=== PATIENT | male | born 1985 | race Two or more races ===

== ENCOUNTER 2019-10-27 22:27 | Emergency (ER) | payer MEDICAID, OTHER ==
[~2019-10-27] VITALS: Ht 177.8 cm; Wt 74.8 kg
--- NOTE | 2019-10-27 22:45 | NUR ---
PT AAOX4. BIB EMS C/O MULTIPLE LACERATION TO R POSTERIOR THIGH S/O DOG BITE, R FLANK ABRASION, L KNEE PAIN. FENTANYL 100MG IVP GIVEN BY EMS. MD AT BEDSIDE FOR EVAL. VSS, NO ACUTE DISTRESS NOTED.
[2019-10-27] MEDS ORDERED: PIPERACILLIN /TAZOBACTAM 3.375 G in IV D5W 50 ML IV ONE (23:00)
[2019-10-27] MEDS ORDERED: MORPHINE SULFATE INJ 2 MG/ML DISP.SYRIN IV ONE (23:00)
[2019-10-27] MEDS ORDERED: LIDOCAINE 1%-EPI 1:100,000 20 ML VIAL TP ONE (23:00)
[2019-10-27] MEDS ORDERED: ONDANSETRON HCL/PF 4 MG/2 ML VIAL IV ONE (23:00)
[2019-10-27] MEDS ORDERED: MORPHINE SULFATE INJ 4 MG/ML DISP.SYRIN ONE (23:09)
[2019-10-27] MEDS ORDERED: LIDOCAINE 1%-EPI 1:100,000 20 ML VIAL ONE (23:09)
[2019-10-27] MEDS ORDERED: ONDANSETRON HCL/PF 4 MG/2 ML VIAL ONE (23:09)
[2019-10-27] MEDS ORDERED: PIPERACILLIN /TAZOBACTAM 3.375 G VIAL IV ONE (23:09)
--- NOTE | 2019-10-27 23:19 | NUR ---
AT BEDSIDE FOR WOUND CLEANING
--- NOTE | 2019-10-27 23:53 | NUR ---
PA AT BEDSIDE FOR SUTURES.
--- NOTE | 2019-10-28 00:46 | NUR ---
IV removed. Catheter intact and site benign. Pressure and 4x4 applied to site. No bleeding noted.
--- NOTE | 2019-10-28 01:07 | NUR ---
Patient discharged to home in stable condition. Written and verbal after care instructions given. Patient verbalizes understanding of instruction and RX. PT used crutches to ambulated. VSS.
[2019-10-28 01:09] VITALS: BP 126/82
== END 2019-10-28 01:09 | disposition home or self-care (01) ==
LOC: ER 22:32
DX: S71.111A Laceration without foreign body, right thigh, initial encounter (principal); S30.811A Abrasion of abdominal wall, initial encounter; M25.562 Pain in left knee; W54.0XXA Bitten by dog, initial encounter; Y93.89 Activity, other specified; Y92.89 Other specified places as the place of occurrence of the external cause; Y99.8 Other external cause status
CPT/HCPCS: 12005; 96365; 96375; 99284; A6403 ×2; J2270; J2405; J2543; J3490; J7060

== ENCOUNTER 2019-10-29 06:33 | Emergency (ER) | payer OTHER ==
[~2019-10-29] VITALS: Ht 177.8 cm; Wt 74.8 kg
[2019-10-29 06:38] VITALS: BP 120/69
--- NOTE | 2019-10-29 07:00 | NUR ---
EMT AT BEDSIDE FOR WOUND DRESSING
--- NOTE | 2019-10-29 07:04 | NUR ---
Patient discharged to home in stable condition. Written and verbal after care instructions given. Patient verbalizes understanding of instruction. Pt ambulatory with a steady gait
== END 2019-10-29 07:05 | disposition home or self-care (01) ==
LOC: ER 06:38
DX: S71.111D Laceration without foreign body, right thigh, subsequent encounter (principal); F10.10 Alcohol abuse, uncomplicated; Y90.9 Presence of alcohol in blood, level not specified; W54.0XXD Bitten by dog, subsequent encounter

== ENCOUNTER 2019-10-30 13:21 | Emergency (ER) | payer OTHER ==
[~2019-10-30] VITALS: Ht 177.8 cm; Wt 74.8 kg
--- NOTE | 2019-10-30 13:36 | NUR ---
CALLED IN ED WAITING ROOM. NO REPLY
--- NOTE | 2019-10-30 13:46 | NUR ---
Patient left without being seen by ER Physician
--- NOTE | 2019-10-30 15:28 | NUR ---
WOUND CARE COMPLETED WITH IRRIGATION AND DRESSING PLACED
[2019-10-30 15:46] VITALS: BP 134/87
--- NOTE | 2019-10-30 15:46 | NUR ---
Patient discharged to home in stable condition. Written and verbal after care instructions given. Patient verbalizes understanding of instruction.
== END 2019-10-30 15:47 | disposition home or self-care (01) ==
LOC: ER 13:23
DX: S71.111D Laceration without foreign body, right thigh, subsequent encounter (principal); S30.811D Abrasion of abdominal wall, subsequent encounter; W54.0XXD Bitten by dog, subsequent encounter
CPT/HCPCS: 99282; A6253 ×2; A6403

== ENCOUNTER 2019-10-31 14:52 | Emergency (ER) | payer OTHER ==
[~2019-10-31] VITALS: Ht 177.8 cm; Wt 74.8 kg
[2019-10-31 16:28] VITALS: BP 142/73
--- NOTE | 2019-10-31 16:28 | NUR ---
PT BIB SELF VISIT FOR WOUND CHECK AT THE R THIGH, SEEN FOR A DOG BITE LAST SATURDAY, PT IS AAOX4, NOT IN RESPIRATORY DISTRESS, V/S STABLE, KEPT RESTED AND COMFORTABLE, WILL CONITNUE TO MONITOR.
--- NOTE | 2019-10-31 16:45 | NUR ---
SIOBHAN LUONG AT BEDSIDE FOR EVAL.
--- NOTE | 2019-10-31 17:46 | NUR ---
Patient discharged to home in stable condition. Written and verbal after care instructions given. Patient verbalizes understanding of instruction.
== END 2019-10-31 17:46 | disposition home or self-care (01) ==
LOC: ER 14:57
DX: S71.111D Laceration without foreign body, right thigh, subsequent encounter (principal); W54.0XXD Bitten by dog, subsequent encounter
CPT/HCPCS: 99282; A6253

== ENCOUNTER 2019-11-01 10:40 | Emergency (ER) | payer OTHER ==
[~2019-11-01] VITALS: Ht 167.6 cm; Wt 68.0 kg
[2019-11-01 10:52] VITALS: BP 128/76
--- NOTE | 2019-11-01 11:26 | NUR ---
Patient awake alert non distress noted Rt thigh dog bite last week ,noted slight redness no odor and non drining cleanse and cover
--- NOTE | 2019-11-01 11:36 | NUR ---
Patient discharged to home in stable condition. Written and verbal after care instructions given. Patient verbalizes understanding of instruction.
== END 2019-11-01 11:37 | disposition home or self-care (01) ==
LOC: ER 10:46
DX: S71.111D Laceration without foreign body, right thigh, subsequent encounter (principal); W54.0XXD Bitten by dog, subsequent encounter
CPT/HCPCS: 99281; L3763

== ENCOUNTER 2019-11-02 11:49 | Emergency (ER) | payer OTHER ==
[~2019-11-02] VITALS: Ht 177.8 cm; Wt 74.8 kg
[2019-11-02 11:55] VITALS: BP 127/80
== END 2019-11-02 12:41 | disposition home or self-care (01) ==
LOC: ER 12:00
DX: S31.103D Unspecified open wound of abdominal wall, right lower quadrant without penetration into peritoneal cavity, subsequent encounter (principal); S71.101D Unspecified open wound, right thigh, subsequent encounter; F10.10 Alcohol abuse, uncomplicated; Y90.9 Presence of alcohol in blood, level not specified; W54.0XXD Bitten by dog, subsequent encounter

== ENCOUNTER 2019-11-05 10:31 | Emergency (ER) | payer OTHER ==
[~2019-11-05] VITALS: Ht 177.8 cm; Wt 74.8 kg
[2019-11-05 10:40] VITALS: BP 136/87
--- NOTE | 2019-11-05 11:12 | NUR ---
WOUND CARE PROVIDED. D/C HOME IN STABLE CONDITION.
== END 2019-11-05 11:13 | disposition home or self-care (01) ==
LOC: ER 10:38
DX: S71.111A Laceration without foreign body, right thigh, initial encounter (principal); M54.5 Low back pain; F10.10 Alcohol abuse, uncomplicated; Y90.9 Presence of alcohol in blood, level not specified; W54.0XXA Bitten by dog, initial encounter; Y93.89 Activity, other specified; Y92.89 Other specified places as the place of occurrence of the external cause; Y99.8 Other external cause status

== ENCOUNTER 2019-11-09 09:56 | Emergency (ER) | payer OTHER ==
[~2019-11-09] VITALS: Ht 177.8 cm; Wt 74.8 kg
--- NOTE | 2019-11-09 10:16 | NUR ---
patient arrived at unit ambulatory. a/o x 4. with report of right thigh wound check s/p dog bite 1 week ago. patient verbalized he received tetanus shot on August. resting on bed, no acute distress. awaiting
--- NOTE | 2019-11-09 10:48 | NUR ---
Wound care PA, Iggy Tinsley at bedside for wound consult
--- NOTE | 2019-11-09 11:28 | NUR ---
Patient discharged to home in stable condition. Written and verbal after care instructions given. Written prescription provided to patient. Patient verbalizes understanding of instruction.
[2019-11-09 11:29] VITALS: BP 120/71
== END 2019-11-09 11:29 | disposition home or self-care (01) ==
LOC: ER 09:59
DX: S71.111D Laceration without foreign body, right thigh, subsequent encounter (principal); W54.0XXD Bitten by dog, subsequent encounter
CPT/HCPCS: 99282; A6253; A6407

== ENCOUNTER 2019-11-13 10:18 | Emergency (ER) | payer OTHER ==
[~2019-11-13] VITALS: Ht 177.8 cm; Wt 74.8 kg
[2019-11-13 10:18] VITALS: BP 116/77
--- NOTE | 2019-11-13 10:49 | NUR ---
SUTURE REMOVED PER MD ORDERED. NO BLEEDING. NO DRAINAGE. NOTED RED GRANULATED TISSUE. NO NOTED SLOUGH.
--- NOTE | 2019-11-13 10:52 | NUR ---
Patient discharged to home in stable condition. Written and verbal after care instructions given. Patient verbalizes understanding of instruction. Pt ambulatory with a steady gait
== END 2019-11-13 11:05 | disposition home or self-care (01) ==
LOC: ER 10:19
DX: S71.111D Laceration without foreign body, right thigh, subsequent encounter (principal); W54.0XXD Bitten by dog, subsequent encounter